=== PATIENT | female | born 1960 | race Caucasian/White ===

== ENCOUNTER 2022-05-16 17:48 | Emergency (ER) | payer MEDICAID ==
[~2022-05-16] VITALS: Ht 167.6 cm; Wt 82.0 kg
[2022-05-16] MEDS ORDERED: IBUPROFEN 400MG TABLET PO ONE (23:30)
[2022-05-16 23:59] VITALS: BP 173/87
[2022-05-17] MEDS ORDERED: IBUP-2028 MT (02:44)
== END 2022-05-17 03:00 | disposition home or self-care (01) ==
LOC: ER 17:48
DX: R07.89 Other chest pain (principal); V49.49XA Driver injured in collision with other motor vehicles in traffic accident, initial encounter; Y93.89 Activity, other specified; Y92.89 Other specified places as the place of occurrence of the external cause; Y99.8 Other external cause status; Z90.710 Acquired absence of both cervix and uterus
CPT/HCPCS: 71250; 99284